=== PATIENT | female | born 1975 | race Caucasian/White ===

== ENCOUNTER 2016-04-29 18:42 | Emergency (ER) | payer OTHER ==
[2016-04-29 19:17] VITALS: BP 128/82; PULSE 90; TEMP 98.5; BMI 23.6
[2016-04-29 21:18] LABS: URINE APPEARANCE CLOUDY; URINE BILIRUBIN NEGATIVE (NEGATIVE); URINE COLOR LTYELLOW; URINE GLUCOSE (UA) NEGATIVE (NEGATIVE); URINE KETONE NEGATIVE (NEGATIVE); URINE NITRITE NEGATIVE (NEGATIVE); URINE PROTEIN NEGATIVE (NEGATIVE); URINE UROBILINOGEN NEGATIVE E.U./dl (0.2-1.0)
[2016-04-29 21:29] LABS: URINE BLOOD 2+ (NEGATIVE); URINE LEUK ESTERASE 3+ (NEGATIVE)
[2016-04-29 21:35] LABS: URINE MUCUS RARE; URINE RBC 3 /hpf (0-3); URINE WBC 5 /hpf (3-5)
--- NOTE | 2016-04-29 21:59 | PDOC ---
History of Present Illness - General Chief Complaint: Cold Symptoms Stated Complaint: FEVER/HEDACHE/BACK PAIN Time Seen by Provider: 04/29/16 20:05 History Source: Patient Exam Limitations: No Limitations - History of Present Illness Initial Comments: 04/29/16 21:54 CC INTERMIT. FEVER AND CHILLS X 1 MONTH, OCCASIONAL LOWER BACK PAIN AND DYSURIA BUT NOT TODAY Timing/Duration: 1 week Severity: mild Associated Symptoms: reports: fever/chills, malaise. denies: nausea/vomiting, shortness of breath Past History - Past Medical History Allergies/Adverse Reactions: Allergies Allergy/AdvReac Type Severity Reaction Status Date / Time No Known Allergies Allergy Verified 04/29/16 18:57 Other medical history: DENIES. - Psycho/Social/Smoking Cessation Hx Suicidal Ideation: No Smoking History: Never smoked Review of Systems - Review of Systems Constitutional: Yes: Fever, Malaise. No: Symptoms Reported, Chills HEENTM: Yes: Throat Pain. No: Nose Congestion, Mouth Pain, Difficulty Swallowing Respiratory: No: Cough Cardiac (ROS): No: Symptoms Reported ABD/GI: No: Symptoms Reported : Yes: Dysuria (SOME TIMES). No: Symptoms Reported, Frequency, Urgency Musculoskeletal: No: Symptoms Reported *Physical Exam - Vital Signs Last Vital Signs Temp Pulse Resp BP Pulse Ox 98.5 F 90 19 128/82 100 04/29/16 18:57 04/29/16 18:57 04/29/16 18:57 04/29/16 18:57 04/29/16 18:57 - Physical Exam General Appearance: Yes: Appropriately Dressed. No: Apparent Distress HEENT: positive: Normal Voice, TMs Normal, Pharynx Normal, Nasal Congestion. negative: TM Bulging, TM Dull, TM Erythema Neck: negative: Tender, Rigid, Lymphadenopathy (R), Lymphadenopathy (L) Respiratory/Chest: positive: Lungs Clear. negative: Accessory Muscle Use, Labored Respiration Cardiovascular: positive: Regular Rhythm, Regular Rate. negative: Murmur Gastrointestinal/Abdominal: positive: Soft. negative: Normal Bowel Sounds, Tender, Organomegaly, Tenderness ED Treatment Course - ADDITIONAL ORDERS Additional order review: Laboratory Results 04/29/16 20:55 Urine Color Ltyellow Urine Appearance Cloudy Urine pH 6.0 Ur Specific [place] 1.013 Urine Protein Negative Urine Glucose (UA) Negative Urine Ketones Negative Urine Blood 2+ H Urine Nitrite Negative Urine Bilirubin Negative Urine Urobilinogen Negative Ur Leukocyte Esterase 3+ H Urine RBC 3 Urine WBC 5 Ur Epithelial Cells Moderate Urine Mucus Rare Urine HCG, Qual Negative 04/29/16 20:55 Group A Strep Rapid Antigen - Final Throat Medical Decision Making - Medical Decision Making 04/29/16 21:57 LABS SUGGEST UTI WILL TREAT WITH MACROBID *DC/Admit/Observation/Transfer Diagnosis at time of Disposition: Urinary tract infection Qualifiers: Urinary tract infection type: acute cystitis Hematuria presence: without hematuria Qualified Code(s): N30.00 - Acute cystitis without hematuria - Discharge Dispostion Disposition: HOME Condition at time of disposition: Stable Admit: No - Patient Instructions Additional Instructions: PLEASE SEE LOCAL MD NEXT WEEK IF SYMPTOMS DO NOT RESOLVE; LOTS O FLFUIDS
== END 2016-04-29 22:06 | disposition home or self-care (01) ==
LOC: JERFT 18:42 → JER 18:42 → JERFT 22:06
DX: N30.00 Acute cystitis without hematuria (principal)
CPT/HCPCS: 81003; 81015; 84703; 87070; 87430; 99281-25

== ENCOUNTER 2016-08-08 19:00 | Emergency (ER) | payer OTHER ==
[2016-08-08 19:03] VITALS: BMI 23.6
--- NOTE | 2016-08-08 20:07 | PDOC ---
History of Present Illness <Michael Dunn - Last Filed: 08/09/16 01:06> - General History Source: Patient Exam Limitations: No Limitations - History of Present Illness Initial Comments: 08/08/16 21:07 The patient is a 40 year old female, with no significant past medical history who presents to the emergency department with bloody stool today. The patient states she had 2 episodes of bloody stool with associated lower back pain. The patient denies any fever, chills. She denies nausea, vomit, diarrhea or constipation. She denies dysuria, frequency, urgency or hematuria. Allergies: NKA Past surgical history: None Social history: None PCP: Dr. Cindy Reeder <Yari Ibarra - Last Filed: 08/09/16 01:40> - General Chief Complaint: Rectal Bleed Stated Complaint: BACK PAIN Past History - Past Medical History Other medical history: NONE - Psycho/Social/Smoking Cessation Hx Suicidal Ideation: No Smoking History: Never smoked Hx Alcohol Use: No Drug/Substance Use Hx: No Substance Use Type: None <MonaMichael - Last Filed: 08/09/16 01:06> <Yari Ibarra - Last Filed: 08/09/16 01:40> - Past Medical History Allergies/Adverse Reactions: Allergies Allergy/AdvReac Type Severity Reaction Status Date / Time No Known Allergies Allergy Verified 08/08/16 19:03 Home Medications: Ambulatory Orders Cephalexin Monohydrate [Keflex -] 500 mg PO Q8H #30 capsule 08/09/16 Review of Systems - Review of Systems Able to Perform ROS?: Yes Comments:: 08/08/16 21:07 GENERAL/CONSTITUTIONAL: No fever or chills. No weakness. HEAD, EYES, EARS, NOSE AND THROAT: No change in vision. No ear pain or discharge. No sore throat. CARDIOVASCULAR: No chest pain or shortness of breath. RESPIRATORY: No cough, wheezing, or hemoptysis. GASTROINTESTINAL: + bloody stool. No nausea, vomiting, diarrhea or constipation. GENITOURINARY: No dysuria, frequency, or change in urination. MUSCULOSKELETAL: No joint or muscle swelling or pain. No neck or back pain. SKIN: No rash NEUROLOGIC: No headache, vertigo, loss of consciousness, or change in strength/ sensation. ENDOCRINE: No increased thirst. No abnormal weight change. HEMATOLOGIC/LYMPHATIC: No anemia, easy bleeding, or history of blood clots. ALLERGIC/IMMUNOLOGIC: No hives or skin allergy. <Yari Ibarra - Last Filed: 08/09/16 01:40> *Physical Exam - Vital Signs Last Vital Signs Temp Pulse Resp BP Pulse Ox 98.5 F 76 20 118/70 100 08/08/16 19:01 08/08/16 19:01 08/08/16 19:01 08/08/16 19:01 08/08/16 19:01 <Michael Dunn - Last Filed: 08/09/16 01:06> - Vital Signs Last Vital Signs Temp Pulse Resp BP Pulse Ox 98.5 F 76 20 118/70 100 08/08/16 19:01 08/08/16 19:01 08/08/16 19:01 08/08/16 19:01 08/08/16 19:01 - Physical Exam Comments: 08/08/16 21:07 GENERAL: Awake, alert, and fully oriented, in no acute distress HEAD: No signs of trauma EYES: PERRLA, EOMI, sclera anicteric, conjunctiva clear ENT: Auricles normal inspection, hearing grossly normal, nares patent, oropharynx clear without exudates. Moist mucosa NECK: Normal ROM, supple, no lymphadenopathy, JVD, or masses LUNGS: Breath sounds equal, clear to auscultation bilaterally. No wheezes, and no crackles HEART: Regular rate and rhythm, normal S1 and S2, no murmurs, rubs or gallops ABDOMEN: Soft, nontender, normoactive bowel sounds. No guarding, no rebound. No masses EXTREMITIES: Normal range of motion, no edema. No clubbing or cyanosis. No cords, erythema, or tenderness NEUROLOGICAL: Cranial nerves II through XII grossly intact. Normal speech, normal gait SKIN: Warm, Dry, normal turgor, no rashes or lesions noted. <Yari Ibarra - Last Filed: 08/09/16 01:40> ED Treatment Course - LABORATORY CBC & Chemistry Diagram: 08/08/16 20:21 08/08/16 20:21 <Michael Dunn - Last Filed: 08/09/16 01:06> - LABORATORY CBC & Chemistry Diagram: 08/08/16 20:21 08/08/16 20:21 <Yari Ibarra - Last Filed: 08/09/16 01:40> Medical Decision Making - Medical Decision Making 08/09/16 01:35 CT Abdomen and Pelvis IMPRESSION: No acute findings Lion Perry MD <Yari Ibarra - Last Filed: 08/09/16 01:40> *DC/Admit/Observation/Transfer - Discharge Dispostion Admit: No - Attestations Physician Attestion: 08/08/16 20:07 I, Dr. Michael Dunn, attest that this document has been prepared under my direction and personally reviewed by me in its entirety. I further attest, that it accurately reflects all work, treatment, procedures and medical decision -making performed by me. <Michael Dunn - Last Filed: 08/09/16 01:06> - Attestations Scribe Attestion: 08/08/16 21:07 Documentation prepared by Yari Ibarra, acting as medical liaison for Michael Dunn MD/DO. <Yari Ibarra - Last Filed: 08/09/16 01:40> Diagnosis at time of Disposition: Rectal bleeding, UTI (urinary tract infection) - Discharge Dispostion Disposition: HOME Condition at time of disposition: Good - Prescriptions Prescriptions: Cephalexin Monohydrate [Keflex -] 500 mg PO Q8H #30 capsule - Referrals Referrals: Cindy Reeder [Primary Care Provider] - Jose Villa MD [Staff Physician] - - Patient Instructions Printed Discharge Instructions: DI for Rectal Bleeding, DI for Urinary Tract Infection (UTI) Additional Instructions: Zahida- Sorry that you are having this problem. All of your results of your blood work and your CT were normal and you will need to follow up with a Civil Defense Director. Dr. Villa is investigation clerk. Meanwhile, it looks like you have a Urinary Tract Infection. Start the Keflex tomorrow and take it three times a day for 10 days. Best- Dr. Michael Dunn Print Language: MALTESE
[2016-08-08 21:11] LABS: URINE APPEARANCE CLOUDY; URINE BILIRUBIN NEGATIVE (NEGATIVE); URINE BLOOD NEGATIVE (NEGATIVE); URINE COLOR YELLOW; URINE GLUCOSE (UA) NEGATIVE (NEGATIVE); URINE KETONE NEGATIVE (NEGATIVE); URINE NITRITE NEGATIVE (NEGATIVE); URINE PROTEIN NEGATIVE (NEGATIVE); URINE UROBILINOGEN NEGATIVE E.U./dl (0.2-1.0)
[2016-08-08 21:15] LABS: URINE LEUK ESTERASE 1+ (NEGATIVE)
[2016-08-08 21:24] LABS: BASOPHIL 0.5 % (0-2.0); EOSINOPHIL 8.4 % (0-4.5); MCH 29.7 pg (25.7-33.7); MCHC 33.9 g/dl (32.0-36.0); MEAN CELL VOLUME 87.5 fl (80-96); MEAN PLT VOLUME 7.8 fl (7.5-11.1); NEUTROPHILS 61.3 % (42.8-82.8); PLATELET COUNT 279 K/MM3 (134-434); RDW 13.4 % (11.6-15.6); WHITE BLOOD COUNT 10.3 K/mm3 (4.0-10.0)
[2016-08-08 21:41] LABS: URINE BACTERIA RARE /hpf (NONE SEEN); URINE MUCUS RARE; URINE RBC 2 /hpf (0-3); URINE WBC 13 /hpf (3-5); YEAST MODERATE
[2016-08-08 21:59] LABS: INR 1.08 (0.82-1.09); PROTHROMBIN TIME (PATIENT) 11.9 SEC (9.98-11.88)
[2016-08-08 22:10] LABS: ANION GAP 6 (8-16); BILIRUBIN,TOTAL 0.6 mg/dL (0.2-1.0); CO2 31 mmol/L (21-32); COCKROFT - GAULT 143.8625; CREATININE 0.5 mg/dL (0.55-1.02); GLUCOSE,RANDOM 97 mg/dL (74-106); SGOT/AST 13 U/L (15-37); SGPT/ALT 21 U/L (12-78); TOT PROT 7.2 g/dl (6.4-8.2)
[2016-08-08 22:11] LABS: ALK PHOS 106 U/L (45-117)
[2016-08-09] MEDS ORDERED: CEPHALEXIN MONOHYDRATE 500 MG CAPSULE (UD) PO ONE (01:02)
[2016-08-09] MEDS ORDERED: CEPHALEXIN MONOHYDRATE 250 MG CAPSULE (FP) ONE (01:06)
[2016-08-09 01:21] VITALS: BP 125/82; PULSE 79; TEMP 98.2
== END 2016-08-09 01:25 | disposition home or self-care (01) ==
LOC: JER 19:00
DX: N39.0 Urinary tract infection, site not specified (principal); K62.5 Hemorrhage of anus and rectum
CPT/HCPCS: 36415; 74177-TC; 80053; 81003; 81015; 83690; 84703; 85025; 85610; 86850; 86900; 86901; 99283-25; Q9967

== ENCOUNTER 2018-04-10 21:39 | Emergency (ER) | payer OTHER ==
--- NOTE | 2018-04-10 21:45 | PDOC ---
Rapid Medical Evaluation Time Seen by Provider: 04/10/18 21:44 Medical Evaluation: Allergies Allergy/AdvReac Type Severity Reaction Status Date / Time No Known Allergies Allergy Verified 08/08/16 19:03 04/10/18 21:44 I performed a brief in-person evaluation of this patient. Chief complaint: Intermittent headache x 1 wk, no hx migraines Pertinent physical exam findings: No focal neurologic deficits I have ordered the following: Urine Patient will proceed to the ED for further evaluation. Discharge Disposition - Diagnosis Headache - Referrals Referrals: Cindy Reeder [Primary Care Provider] - - Patient Instructions - Post Discharge Activity
[2018-04-10 21:49] VITALS: BP 112/68; PULSE 69; TEMP 98; BMI 23.0
[2018-04-10] MEDS ORDERED: diphenhydrAMINE HCL 25 MG CAPSULE (FP) PO ONE ×2 (21:58→22:07)
[2018-04-10] MEDS ORDERED: predniSONE 20 MG TABLET (UD) PO ONE (21:58)
--- NOTE | 2018-04-10 22:01 | PDOC ---
History of Present Illness - General Chief Complaint: Headache Stated Complaint: HEADACHE PRESSURE ON EYE Time Seen by Provider: 04/10/18 21:44 History Source: Patient Exam Limitations: No Limitations - History of Present Illness Initial Comments: Patient is a 42-year-old female who states over the past week she has intermittently had a headache located on the right frontal/tempoparietal region. She denies a thunderclap sensation prior to its initiation. She denies this being the worsening of her life. She denies nausea. Denies fever or nuchal rigidity. She denies this being the worsening of her life. She did take ibuprofen 600 mg at 7:00 tonight. Denies visual disturbances or any aggravating or relieving factors. 04/10/18 21:58 Past History - Travel Traveled outside of the country in the last 30 days: No - Past Medical History Allergies/Adverse Reactions: Allergies Allergy/AdvReac Type Severity Reaction Status Date / Time No Known Allergies Allergy Verified 04/10/18 21:46 Home Medications: Ambulatory Orders Ibuprofen 600 mg PO ASDIR 04/10/18 COPD: No - Suicide/Smoking/Psychosocial Hx Smoking History: Never smoked Have you smoked in the past 12 months: No Information on smoking cessation initiated: No Hx Alcohol Use: No Drug/Substance Use Hx: No Substance Use Type: None Review of Systems - Review of Systems Able to Perform ROS?: Yes Constitutional: No: Fever HEENTM: No: Eye Pain, Blurred Vision Neurological: Yes: Headache All Other Systems: Reviewed and Negative *Physical Exam - Vital Signs Last Vital Signs Temp Pulse Resp BP Pulse Ox 98.0 F 69 16 112/68 100 04/10/18 21:45 04/10/18 21:45 04/10/18 21:45 04/10/18 21:45 04/10/18 21:45 - Physical Exam Comments: Constitutional: VS stated, pt appears in no apparent distress; sitting in chair. Skin: Warm and dry. Intact, no lesions or excoriations. Head: Normocephalic; atraumatic Eyes: Extraocular movements intact, PERRL, conjunctiva pink without injection or discharge. Lids normal; no periorbital edema or erythema. Vision subjectively normal or at baseline. Ears: No tenderness present. Canals without injection or discharge; TM clear, no retractions or bulging. Nose: Patent, mucosa pink. No drainage. Neck: No nuchal rigidity Throat: Oropharynx with pink and moist mucosa. Lungs: Bilateral breath sounds clear upon auscultation. No adventitious breath sounds. Heart: Regular rate and rhythm, Musculoskeletal: Moves all extremities without difficulty. Neurologic: Awake, alert. Conversation fluent. 04/10/18 21:59 Moderate Sedation - Procedure Monitoring Vital Signs: Procedure Monitoring Vital Signs Temperature 98.0 F 04/10/18 21:45 Pulse Rate 69 04/10/18 21:45 Respiratory Rate 16 04/10/18 21:45 Blood Pressure 112/68 04/10/18 21:45 O2 Sat by Pulse Oximetry (%) 100 04/10/18 21:45 Medical Decision Making - Medical Decision Making Pt has no red flag signs warranting a head CT or LP. 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 She was given Benadryl and Prednisone. 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 04/10/18 22:00 *DC/Admit/Observation/Transfer Diagnosis at time of Disposition: Headache Qualifiers: Headache type: unspecified Headache chronicity pattern: acute headache Intractability: not intractable Qualified Code(s): R51 - Headache - Discharge Dispostion Disposition: HOME Condition at time of disposition: Stable Decision to Admit order: No - Referrals Referrals: Cindy Reeder [Primary Care Provider] - - Patient Instructions Printed Discharge Instructions: DI for Headache Additional Instructions: Take Ibuprofen 600 mg every 6 hours. F/U with your PCP - Post Discharge Activity
[2018-04-10] MEDS ORDERED: predniSONE 20 MG TABLET (UD) ONE (22:07)
== END 2018-04-10 22:30 | disposition home or self-care (01) ==
LOC: JERFT 21:39
DX: R51 Headache (principal)
CPT/HCPCS: 99281-25

== ENCOUNTER 2018-09-15 20:01 | Emergency (ER) | payer OTHER ==
[2018-09-15 20:14] VITALS: BP 122/86; PULSE 78; TEMP 98.4; BMI 24.4
--- NOTE | 2018-09-15 20:15 | PDOC ---
Rapid Medical Evaluation Chief Complaint: Pain, Acute Time Seen by Provider: 09/15/18 20:12 Medical Evaluation: Allergies Allergy/AdvReac Type Severity Reaction Status Date / Time No Known Allergies Allergy Verified 04/10/18 21:46 09/15/18 20:12 I have performed a brief in-person evaluation of this patient. The patient presents with a chief complaint of: left arm and shoulder pain/ worse with movement - no fevers/ CP/ Palpitaiton Pertinent physical exam findings: well, non-toxic appearance I have ordered the following: EkG The patient will proceed to the ED for further evaluation. Discharge Disposition - Diagnosis Muscle pain - Referrals - Patient Instructions - Post Discharge Activity
[2018-09-15] MEDS ORDERED: ASPIRIN 81 MG CHEWABLE TABLETS PO ONE (21:31)
--- NOTE | 2018-09-15 21:31 | PDOC ---
History of Present Illness - General Chief Complaint: Chest Pain Stated Complaint: CHEST PAIN Time Seen by Provider: 09/15/18 20:12 History Source: Patient - History of Present Illness Initial Comments: 09/15/18 21:32 43 year old female with left sided chest pain x 2 days, patient is also complaining of left shoulder pain, denies nausea, vomiting, diaphoresis. patient seen by PCP tpday at [facility] Dr. jack recommended to come to ED for evaluation denies OCP use, recent travel prolonged sitting. PMHX: none 09/15/18 21:34 09/15/18 23:48 Past History - Past Medical History Allergies/Adverse Reactions: Allergies Allergy/AdvReac Type Severity Reaction Status Date / Time No Known Allergies Allergy Verified 09/15/18 20:14 Home Medications: Ambulatory Orders Ibuprofen 600 mg PO ASDIR 04/10/18 COPD: No - Suicide/Smoking/Psychosocial Hx Smoking History: Never smoked Have you smoked in the past 12 months: No Hx Alcohol Use: No Drug/Substance Use Hx: No Substance Use Type: None Review of Systems - Review of Systems Able to Perform ROS?: Yes Is the patient limited Hebrew proficient: No Constitutional: No: Symptoms Reported, See HPI, Chills, Diaphoresis, Fever, Loss of Appetite, Malaise, Night Sweats, Weakness, Weight Stable, Unintentional Wgt. Loss, Unexplained wgt Loss, Other Cardiac (ROS): Yes: Chest Pain. No: Symptoms Reported, See HPI, Edema, Irregular Heart Rate, Lightheadedness, Palpitations, Syncope, Chest Tightness, Other Musculoskeletal: Yes: Other (left shoulder pain). No: Symptoms Reported, See HPI, Back Pain, Gout, Joint Pain, Joint Swelling, Muscle Pain, Muscle Weakness, Neck Pain, Joint Stiffness Integumentary: No: Symptoms Reported, See HPI, Bruising, Change in Color, Change in Hair/Nails, Dryness, Erythema, Flushing, Lesions, Lumps, Pallor, Pruritus, Rash, Sweating, Other *Physical Exam - Vital Signs Last Vital Signs Temp Pulse Resp BP Pulse Ox 98.4 F 78 18 122/86 99 09/15/18 20:05 09/15/18 20:05 09/15/18 20:05 09/15/18 20:05 09/15/18 20:05 - Physical Exam General Appearance: Yes: Appropriately Dressed Heart Score/ECG Review - History History: Slightly suspicious - Electrocardiogram EKG: Normal - Age Age: </= 45 - Risk Factors Based on the list above the patient has:: No risk factors known - Troponin Troponin: </= normal limit - Score Heart Score - Total: 0 - ECG Intrepretation Rhythm: Regular Rhythm Comment:: 09/15/18 21:36 NSR: 75 bpm ED Treatment Course - LABORATORY CBC & Chemistry Diagram: 09/15/18 21:42 09/15/18 21:31 - ADDITIONAL ORDERS Additional order review: Laboratory Results 09/15/18 09/15/18 09/15/18 21:44 21:42 21:31 PT with INR 12.10 INR 1.03 Sodium 139 Potassium 3.9 Chloride 108 H Carbon Dioxide 25 Anion Gap 6 L BUN 10.1 Creatinine 0.8 Est GFR (CKD-EPI)AfAm 105.39 Est GFR (CKD-EPI)NonAf 90.93 Random Glucose 89 Calcium 9.1 Magnesium 2.3 Total Bilirubin 0.5 AST 19 ALT 31 Alkaline Phosphatase 114 Creatine Kinase 105 Troponin I < 0.02 Total Protein 7.3 Albumin 3.9 Urine Color Yellow Urine Appearance Cloudy Urine pH 6.0 Ur Specific [place] 1.015 Urine Protein Negative Urine Glucose (UA) Negative Urine Ketones Negative Urine Blood Trace Urine Nitrite Negative Urine Bilirubin Negative Urine Urobilinogen 0.2 Ur Leukocyte Esterase 1+ H Urine WBC (Auto) 40 Urine RBC (Auto) 8 Urine Casts (Auto) 7 U Epithel Cells (Auto) 13.2 Urine Bacteria (Auto) 999.8 Urine HCG, Qual Negative 09/15/18 21:42 RBC 4.13 MCV 87.0 MCHC 34.3 RDW 13.1 MPV 7.1 L Neutrophils % 67.5 Lymphocytes % 21.7 Monocytes % 5.9 Eosinophils % 4.4 Basophils % 0.5 - RADIOLOGY Radiology Studies Ordered: Category Date Time Status CHEST PA & LAT [RAD] Stat Radiology 09/15/18 21:31 Completed - Medications Given in the ED: ED Medications Discontinued Medications Generic Name Dose Route Start Last Admin Trade Name Freq PRN Reason Stop Dose Admin Aspirin 162 mg 09/15/18 21:31 09/15/18 22:31 Asa - PO 09/15/18 21:32 162 mg ONCE ONE Administration Medical Decision Making - Medical Decision Making 09/15/18 22:59 A; Chest pain P: labs ekg ' chest xray ua: _+1 leuks. has no urinary symptoms. will defer treatment at this time. patient will repeat test with PCP *DC/Admit/Observation/Transfer Diagnosis at time of Disposition: Chest pain Qualifiers: Chest pain type: unspecified Qualified Code(s): R07.9 - Chest pain, unspecified - Discharge Dispostion Disposition: HOME - Referrals Referrals: Cindy Jack [Primary Care Provider] - Call tomorrow - Patient Instructions Printed Discharge Instructions: DI for Chest Pain Additional Instructions: drink plenty of fluids take ibuprofen every 6 hours as needed for pain Additional Instructions: * Please call your personal physician to report your Emergency Department visit and to report your progress, if any. * If there is no improvement in symptoms in 2 days call your physician. * Return to the Emergency Department for any worsening symptoms. - Post Discharge Activity Forms/Work/School Notes: Back to Work
--- NOTE | 2018-09-15 21:41 | PDOC ---
*Physical Exam - Vital Signs Last Vital Signs Temp Pulse Resp BP Pulse Ox 98.4 F 78 18 122/86 99 09/15/18 20:05 09/15/18 20:05 09/15/18 20:05 09/15/18 20:05 09/15/18 20:05 ED Treatment Course - LABORATORY CBC & Chemistry Diagram: 09/15/18 21:42 09/15/18 21:31 Medical Decision Making - Medical Decision Making 09/15/18 21:41 Patient seen by the advanced practice provider under my direct supervision. Ancillary testing reviewed as necessary. I agree with plan as outlined by the advanced practice provider. *DC/Admit/Observation/Transfer Diagnosis at time of Disposition: Chest pain Qualifiers: Chest pain type: unspecified Qualified Code(s): R07.9 - Chest pain, unspecified - Discharge Dispostion Disposition: HOME - Referrals Referrals: Cindy Reeder [Primary Care Provider] - Call tomorrow - Patient Instructions Printed Discharge Instructions: DI for Chest Pain Additional Instructions: drink plenty of fluids take ibuprofen every 6 hours as needed for pain Additional Instructions: * Please call your personal physician to report your Emergency Department visit and to report your progress, if any. * If there is no improvement in symptoms in 2 days call your physician. * Return to the Emergency Department for any worsening symptoms. - Post Discharge Activity Forms/Work/School Notes: Back to Work
[2018-09-15 22:00] LABS: BASO % 0.5 % (0-2.0); EOS % 4.4 % (0-4.5); HEMOGLOBIN 12.3 GM/dL (10.7-15.3); LYMPH % 21.7 % (8-40); MCH 29.9 pg (25.7-33.7); MCHC 34.3 g/dl (32.0-36.0); MEAN PLT VOLUME 7.1 fl (7.5-11.1); MONO % 5.9 % (3.8-10.2); NEUT % 67.5 % (42.8-82.8); PLATELET COUNT 321 K/MM3 (134-434); RBC 4.13 M/mm3 (3.60-5.2); RDW 13.1 % (11.6-15.6); WHITE BLOOD COUNT 12.7 K/mm3 (4.0-10.0)
[2018-09-15 22:07] LABS: HCG,QUALITATIVE URINE Negative
[2018-09-15 22:12] LABS: EPI CELLS 13.2 /HPF (0-5/HPF); HYALINE CASTS 7 /lpf (0-8); URINE APPEARANCE CLOUDY; URINE BACTERIA 999.8 /hpf (NEGATIVE); URINE BILIRUBIN NEGATIVE (NEGATIVE); URINE COLOR YELLOW; URINE GLUCOSE (UA) NEGATIVE (NEGATIVE); URINE KETONE NEGATIVE (NEGATIVE); URINE LEUK ESTERASE 1+ (NEGATIVE); URINE NITRITE NEGATIVE (NEGATIVE); URINE PROTEIN NEGATIVE (NEGATIVE); URINE RBC 8 /hpf (0-4); URINE UROBILINOGEN 0.2 mg/dL (0.2-1.0); URINE WBC 40 /hpf (0-5)
[2018-09-15 22:13] LABS: INR 1.03 (0.83-1.09); PROTHROMBIN TIME (PATIENT) 12.1 SEC (9.7-13.0)
[2018-09-15] MEDS ORDERED: ASPIRIN 81 MG CHEWABLE TABLETS ONE (22:13)
[2018-09-15 22:40] LABS: ALBUMIN 3.9 g/dl (3.4-5.0); ALK PHOS 114 U/L (45-117); ANION GAP 6 MMOL/L (8-16); BILIRUBIN,TOTAL 0.5 mg/dL (0.2-1); BLOOD UREA NITROGEN 10.1 mg/dL (7-18); CALCIUM 9.1 mg/dL (8.5-10.1); CHLORIDE 108 mmol/L (98-107); CO2 25 mmol/L (21-32); CREATININE 0.8 mg/dL (0.55-1.3); GLUCOSE,RANDOM 89 mg/dL (74-106); MAGNESIUM 2.3 mg/dL (1.8-2.4); POTASSIUM 3.9 mmol/L (3.5-5.1); SGOT/AST 19 U/L (15-37); SGPT/ALT 31 U/L (13-61); SODIUM 139 mmol/L (136-145); TOT PROT 7.3 g/dl (6.4-8.2)
--- NOTE | 2018-09-16 14:46 | EKG ---
Test Reason : Blood Pressure : / mmHG Vent. Rate : 075 BPM Atrial Rate : 075 BPM P-R Int : 170 ms QRS Dur : 084 ms QT Int : 398 ms P-R-T Axes : 046 002 034 degrees QTc Int : 444 ms NORMAL SINUS RHYTHM T WAVE ABNORMALITY, CONSIDER ANTERIOR ISCHEMIA ABNORMAL ECG NO PREVIOUS ECGS AVAILABLE Confirmed by MD JC, GARFIELD ([id number]) on 09/16/2018 2:45:41 PM Referred By: Confirmed By:GARFIELD GREENE MD
== END 2018-09-15 23:52 | disposition home or self-care (01) ==
LOC: JER 20:01
DX: R07.9 Chest pain, unspecified (principal)
CPT/HCPCS: 36415; 71046-TC-FY; 80053; 81003; 82550; 83735; 84484; 84703; 85025; 85610; 93005; 93010; 99282-25

== ENCOUNTER 2022-09-04 04:26 | Day surgery (SDC) | payer OTHER ==
[2022-08-29 16:12] VITALS: BMI 25.1
[2022-09-04] MEDS ORDERED: SIMETHICONE 40 MG/0.6 ML BOTTLE ONE (07:40)
[2022-09-04 09:16] VITALS: BP 122/70; PULSE 56; RESP 13; TEMP 98
== END 2022-09-04 09:16 | disposition home or self-care (01) ==
LOC: JASU-ENDO 04:26
PROVIDERS: ATTEND Internal Medicine Gastroenterology
PROC: 0DJD8ZZ Inspection of Lower Intestinal Tract, Via Natural or Artificial Opening Endoscopic (ICD-10-PCS; principal; 2022-09-04 08:00)
DX: K64.8 Other hemorrhoids (principal)
CPT/HCPCS: 81025

== ENCOUNTER 2022-10-18 18:14 | Emergency (ER) | payer OTHER ==
[2022-10-18 18:18] VITALS: BP 135/80; PULSE 80; RESP 18; TEMP 98.8; BMI 25.3
== END 2022-10-18 18:56 | disposition home or self-care (01) ==
LOC: JERFT 18:14
DX: J01.10 Acute frontal sinusitis, unspecified (principal); R09.81 Nasal congestion; R05.9 Cough, unspecified; R07.0 Pain in throat; R50.9 Fever, unspecified; K08.89 Other specified disorders of teeth and supporting structures; Z20.822 Contact with and (suspected) exposure to COVID-19
CPT/HCPCS: 0241U-QW; 99283-25

== ENCOUNTER 2023-01-09 15:08 | Emergency (ER) | payer OTHER ==
[2023-01-09 15:17] VITALS: BP 111/74; PULSE 88; RESP 16; TEMP 98.3; BMI 25.4
[2023-01-09] MEDS ORDERED: ACETAMINOPHEN 500 MG TABLET (FP) PO ONE (17:48)
[2023-01-09] MEDS ORDERED: SODIUM CHLORIDE 0.9% 500 ML INFUS.BAG IV ONE (17:48)
[2023-01-09] MEDS ORDERED: METOCLOPRAMIDE HCL INJECTION 10 MG/2 ML VIAL IVPB ONE (17:50)
[2023-01-09] MEDS ORDERED: KETOROLAC TROMETHAMINE 30 MG/1 ML VIAL IVPUSH ONE (17:51)
[2023-01-09] MEDS ORDERED: KETOROLAC TROMETHAMINE 30 MG/1 ML VIAL ONE (18:22)
[2023-01-09] MEDS ORDERED: ACETAMINOPHEN 500 MG TABLET (FP) ONE (18:22)
[2023-01-09] MEDS ORDERED: METOCLOPRAMIDE HCL INJECTION 10 MG/2 ML VIAL ONE (18:22)
[2023-01-09 19:05] LABS: BASO % 0.3 % (0-2.0); EOS % 1.3 % (0-4.5); HEMATOCRIT 39.6 % (32.4-45.2); HEMOGLOBIN 13.3 GM/dL (10.7-15.3); LYMPH % 35.9 % (8-40); MCH 29.2 pg (25.7-33.7); MCHC 33.7 g/dl (32.0-36.0); MEAN CELL VOLUME 86.6 fl (80-96); MEAN PLT VOLUME 7.3 fl (7.5-11.1); MONO % 6.4 % (3.8-10.2); NEUT % 56.1 % (42.8-82.8); PLATELET COUNT 326 10^3/uL (134-434); RBC 4.57 M/mm3 (3.60-5.2); RDW 13.6 % (11.6-15.6); WHITE BLOOD COUNT 8.7 K/mm3 (4.0-10.0)
[2023-01-09 19:25] LABS: CALCIUM 8.9 mg/dL (8.5-10.1)
[2023-01-09 19:26] LABS: ALBUMIN 4.1 g/dl (3.4-5.0)
[2023-01-09 19:29] LABS: CREATININE 0.7 mg/dL (0.55-1.3)
[2023-01-09 19:31] LABS: BILIRUBIN,TOTAL 0.5 mg/dL (0.2-1); TOT PROT 7.6 g/dl (6.4-8.2)
== END 2023-01-09 21:45 | disposition left against medical advice (07) ==
LOC: JER 15:08
PROC: 3E0333Z Introduction of Anti-inflammatory into Peripheral Vein, Percutaneous Approach (ICD-10-PCS; principal; 2023-01-09)
PROC: 3E033GC Introduction of Other Therapeutic Substance into Peripheral Vein, Percutaneous Approach (ICD-10-PCS; 2023-01-09)
DX: R51.9 Headache, unspecified (principal)
CPT/HCPCS: 36415; 70450-TC; 80053; 85025; 99284-25